=== PATIENT | male | born 1955 | race Caucasian/White ===

== ENCOUNTER 2017-01-23 08:36 | Emergency (ER) | payer OTHER ==
[~2017-01-23 08:36] MED LIST: AMITIZA8 MCG PO; ASPIRIN EC81 MG PO; BREO ELLIPTA 11 EACH IH; BUSPIRONE HCL15 MG PO; CIPRO500 MG PO; CYCLOBENZAPRINE10 MG PO; ELIQUIS5 MG PO; JANUVIA50 MG PO; LANTUS100 UNIT/1 SQ; LISINOPRIL40 MG PO; MACRODANTIN50 MG PO; METOPROLOL TART25 MG PO; MS CONTIN60 MG PO; NEURONTIN300 MG PO; NITROSTAT0.4 MG SL; NORVASC5 MG PO; PHENERGAN25 M1 PO; PRAVACHOL40 MG PO; PROAIR HFA8.5 GM IH; PROZAC40 MG PO; ROXICODONE15 MG PO; TRAZODONE HCL50 MG PO; ZOFRAN4 MG PO
== END 2017-01-23 13:50 | disposition home or self-care (01) ==
LOC: ER 08:36
DX: R07.9 Chest pain, unspecified (principal); R11.2 Nausea with vomiting, unspecified; E11.9 Type 2 diabetes mellitus without complications; E78.5 Hyperlipidemia, unspecified; I10 Essential (primary) hypertension; F17.220 Nicotine dependence, chewing tobacco, uncomplicated; Z95.1 Presence of aortocoronary bypass graft; Z79.82 Long term (current) use of aspirin; Z79.4 Long term (current) use of insulin; Z79.899 Other long term (current) drug therapy
CPT/HCPCS: 36415; 96365; 96366; 96375

== ENCOUNTER 2017-01-27 11:05 | Emergency (ER) | payer OTHER | END 2017-01-27 13:25 | disposition home or self-care (01) | LOC: ER 11:05 | DX: K59.03 Drug induced constipation (principal); T40.605A Adverse effect of unspecified narcotics, initial encounter; I10 Essential (primary) hypertension; E11.9 Type 2 diabetes mellitus without complications; I25.2 Old myocardial infarction; J44.9 Chronic obstructive pulmonary disease, unspecified; F17.210 Nicotine dependence, cigarettes, uncomplicated; Z86.73 Personal history of transient ischemic attack (TIA), and cerebral infarction without residual deficits; Z79.82 Long term (current) use of aspirin; Z79.4 Long term (current) use of insulin; Z79.899 Other long term (current) drug therapy | CPT/HCPCS: 36415 ==